=== PATIENT | female | born 1975 ===

== ENCOUNTER 2017-01-25 12:29 | Emergency (ER) | payer SELFPAY ==
[2017-01-25 12:44] VITALS: BP 133/99
--- NOTE | 2017-01-25 14:11 | UC ---
Ear Complaint HPI - HPI Summary HPI Summary: 41 yo female with 10 day hx of bilateral ear pain (mild), ear fullness/pressure , slight decreased hearing and nasal congestion no WATT no f/c some disequilibrium but no true vertigo no roaring in ears no loud ringing mild tinnitus - History of Current Complaint Chief Complaint: UCEar Stated Complaint: EAR PAIN Time Seen by Provider: 01/25/17 13:52 Hx Obtained From: Patient Hx Last Menstrual Period: 12/21/16 Onset/Duration: Sudden Onset, Lasting Days Severity Initially: Mild Severity Currently: Mild Pain Intensity: 3 Pain Scale Used: 0-10 Numeric Aggravating Factors: Nothing Alleviating Factors: Nothing Associated Signs/Symptoms: Positive: Hearing Loss - mild, URI Symptoms - Allergies/Home Medications Allergies/Adverse Reactions: Allergies Allergy/AdvReac Type Severity Reaction Status Date / Time Penicillins [PCN] Allergy Insomnia Verified 01/25/17 12:44 Home Medications: Home Medications Cetirizine* [ZyrTEC 10 MG TAB*] 10 mg PO DAILY 01/25/17 [History Confirmed 01/25] Ibuprofen [Advil] 200 mg PO Q6H PRN 01/25/17 [History Confirmed 01/25/17] Levothyroxine TAB* [Synthroid TAB*] 75 mcg PO DAILY 01/25/17 [History Confirmed 01/25/17] PMH/Surg Hx/FS Hx/Imm Hx Previously Healthy: Yes - Surgical History Surgical History: Yes Surgery Procedure, Year, and Place: Pectus excavatum '90 - Family History Known Family History: Positive: Hypertension - Social History Alcohol Use: Occasionally Substance Use Type: None Smoking Status (MU): Former Smoker Length of Time of Smoking/Using Tobacco: quit 9 yrs ago - Immunization History Most Recent Influenza Vaccination: none Review of Systems Constitutional: Negative Skin: Negative Eyes: Negative ENT: Ear Ache, Nasal Discharge, Sinus Congestion Respiratory: Negative Cardiovascular: Negative Gastrointestinal: Negative Genitourinary: Negative Motor: Negative Neurovascular: Negative Musculoskeletal: Negative Neurological: Other - disequilibrium Psychological: Negative Is Patient Immunocompromised?: No All Other Systems Reviewed And Are Negative: Yes Physical Exam Triage Information Reviewed: Yes Appearance: Well-Appearing, No Pain Distress, Well-Nourished Vital Signs: Initial Vital Signs Temp 97.7 F 01/25/17 12:38 Pulse 73 01/25/17 12:38 Resp 16 01/25/17 12:38 BP 133/99 01/25/17 12:38 Pulse Ox 99 01/25/17 12:38 Vital Signs Reviewed: Yes Eyes: Positive: Conjunctiva Clear, Other: - no nyustagmus ENT: Positive: Hearing grossly normal, Nasal congestion, Nasal drainage, TM bulging - sl. Negative: Muffled voice, Hoarse voice, Dental tenderness, Sinus tenderness, Uvula midline Neck: Positive: Supple, Nontender Respiratory: Positive: Lungs clear, Normal breath sounds, No respiratory distress Cardiovascular: Positive: RRR, No Murmur Abdominal Exam: Normal Musculoskeletal: Positive: ROM Intact, No Edema Neurological Exam: Normal Neurological: Positive: Alert Psychological Exam: Normal Skin Exam: Normal Ear Complaint Course/Dx - Differential Dx/Diagnosis Provider Diagnoses: bilateral serous otitis media. dizziness Discharge - Discharge Plan Condition: Stable Disposition: HOME Prescriptions: Azithromycin TAB* [Zithromax TAB*] 250 mg PO DAILY #6 tab Meclizine HCl [Meclizine 25] 25 mg PO TID PRN #20 tab PRN Reason: Dizziness Patient Education Materials: Serous Otitis Media (ED) Referrals: [facility] [place] [facility] [Outside] - If Needed Additional Instructions: use your flonase daily for 2 weeks recheck for new or worsening symptoms of if not better in about a week
== END 2017-01-25 14:10 | disposition home or self-care (01) ==
LOC: UCEAST 12:29
DX: H65.93 Unspecified nonsuppurative otitis media, bilateral (principal); R42 Dizziness and giddiness; Z87.891 Personal history of nicotine dependence
CPT/HCPCS: 99202; G0463